=== PATIENT | male | born 1970 | race Caucasian/White ===

== ENCOUNTER 2022-06-03 07:53 | Emergency (ER) | payer BC ==
[~2022-06-03] VITALS: Ht 172.7 cm; Wt 102.1 kg
[2022-06-03] MEDS ORDERED: SIMVASTATIN5 MG PO (08:11)
[2022-06-03] MEDS ORDERED: ZESTRIL20 MG PO (08:11)
== END 2022-06-03 14:00 | disposition home or self-care (01) ==
LOC: ER 07:53
DX: U07.1 COVID-19 (principal); J06.9 Acute upper respiratory infection, unspecified